=== PATIENT | female | born 1945 | race Two or more races ===

== ENCOUNTER → 2020-05-19 | Day surgery (SDC) | payer MEDICAID ==
[2020-05-18 09:40] LABS: COVID AG,FIA SOURCE NASOPHARYNGEAL
== END | disposition home or self-care (01) ==
LOC: SURGERY 12:13
PROVIDERS: ATTEND Ophthalmology
DX: H26.8 Other specified cataract (principal); Z53.8 Procedure and treatment not carried out for other reasons
CPT/HCPCS: 87426; C9803